=== PATIENT | female | born 1960 | race Caucasian/White ===

== ENCOUNTER 2016-12-10 18:43 | Emergency (ER) | payer OTHER ==
[~2016-12-10] VITALS: Ht 167.6 cm; Wt 88.4 kg
[~2016-12-10 18:43] MED LIST: ADVAIR IH; Advair 100/50 Diskus IH; CETIRIZINE HCL10 M2 PO; Ceftin PO; Claritin,Alavart PO; DICLOFENAC SODI50 MG PO; DUONEB 2.5-0.5 M3 ML IH; GABAPENTIN300 MG PO; INVOKANA300 MG PO; METFORMIN HCL1000 MG PO; METFORMIN PO; PERCOCET 5/31 TABLET PO; PROTONIX40 MG PO; PROVENTIL HFA6.7 GM IH; PROVENTIL,2.5 MG/3 M IH; RHINOCORT AQUA8.6 G1 NS; TAMIFLU75 MG PO; VENTOLIN HFA18 GM IH; [UNRECOGNIZED DRUG - OTHER]; predniSONE PO
[2016-12-10 20:10] LABS: HEMATOCRIT 41.4 % (36.0-46.0); MCH 30.7 PG (29.0-34.0); MCHC 34.3 G/DL (30.0-36.0); MCV 89.6 FL (83-99); MEAN PLAT.VOLUME 10.6 uM^3 (9.5-12.4); PLATELET COUNT 195 K/uL (156-360); RBC DIS.WIDTH-CV 12.4 % (11.8-14.6); RBC DIS.WIDTH-SD 39.9 % (39-53); RED BLOOD COUNT 4.62 M/uL (3.80-5.20); WHITE BLOOD COUNT 6.5 K/uL (4.1-10.2)
[2016-12-10 20:27] LABS: ADD MIUA? YES; BILIRUBIN NEGATIVE; BLOOD NEGATIVE; COLOR YELLOW ((YELLOW)); GLUCOSE (STRIP) >=500; KETONES NEGATIVE; LEUKOCYTES MODERATE; NITRITE NEGATIVE; PROTEIN (STRIP) 30; SPECIFIC GRAVITY 1.029 (1.000-1.030)
[2016-12-10 20:54] LABS: BACTERIA NONE SEEN /HPF; BUDDING YEAST 2+; EPITHELIAL CELLS RARE /HPF; MUCUS TRACE /LPF; WHITE BLOOD CELLS TNTC /HPF (0-5)
[2016-12-10 21:05] LABS: CHLORIDE 106 mEq/L (99-109); POTASSIUM 3.7 mEq/L (3.7-5.4); SODIUM 141 mEq/L (136-147)
[2016-12-10 21:07] LABS: GLUCOSE 224 mg/dL (70-99)
[2016-12-10 21:09] LABS: ANION GAP 9 MEQ/L (2-14); TOTAL BILIRUBIN 0.7 mg/dL (0.0-1.0)
[2016-12-10 21:11] LABS: ALKALINE PHOSPHATASE 84 IU/L (3-129); GFR ESTIMATE (CALCULATED) > 59 mL/min/
[2016-12-10 21:12] LABS: UREA NITROGEN (BUN) 11 mg/dL (9-23)
[2016-12-10 21:13] LABS: DIRECT BILIRUBIN 0.3 mg/dL (0.0-0.3)
[2016-12-10 21:14] LABS: LIPASE 12 U/L (1.0-51.0)
[2016-12-10] MEDS ORDERED: NAPROSYN500 MG PO (21:22)
[2016-12-10] MEDS ORDERED: CIPRO500 MG PO (21:22)
[2016-12-10 22:23] VITALS: BP 138/82
== END 2016-12-10 22:25 | disposition home or self-care (01) ==
LOC: EME 18:43
PROVIDERS: Emergency Medicine; Physician Assistant
DX: N30.00 Acute cystitis without hematuria (principal); J45.909 Unspecified asthma, uncomplicated; E11.9 Type 2 diabetes mellitus without complications; M79.7 Fibromyalgia; I10 Essential (primary) hypertension; K21.9 Gastro-esophageal reflux disease without esophagitis
CPT/HCPCS: 74176; 80048; 80076; 81003; 83690; 85027; 87086; 99281; 99284

== ENCOUNTER → 2017-08-09 | Outpatient (CLI) | payer OTHER ==
[~2017-08-09] VITALS: Ht 165.1 cm; Wt 87.1 kg
[~2017-08-09] MED LIST changes: +ACTOS45 MG PO; +CIPRO500 MG PO; +NAPROSYN500 MG PO; +TRULICITY1.5 MG/0.5 SC
[2017-08-09 14:57] LABS: POINT-OF-CARE METER ID UU14107333
[2017-08-09 16:25] LABS: POINT-OF-CARE METER ID UU13113819
== END | disposition home or self-care (01) ==
LOC: AMB 13:51
PROVIDERS: Internal Medicine
DX: Z12.11 Encounter for screening for malignant neoplasm of colon (principal); D12.3 Benign neoplasm of transverse colon; K29.70 Gastritis, unspecified, without bleeding; K57.90 Diverticulosis of intestine, part unspecified, without perforation or abscess without bleeding; K63.5 Polyp of colon; K64.8 Other hemorrhoids; Z86.010 Personal history of colon polyps; Z80.0 Family history of malignant neoplasm of digestive organs; E11.65 Type 2 diabetes mellitus with hyperglycemia; F41.8 Other specified anxiety disorders; K21.9 Gastro-esophageal reflux disease without esophagitis; M79.7 Fibromyalgia; Z80.3 Family history of malignant neoplasm of breast; Z80.42 Family history of malignant neoplasm of prostate; Z88.0 Allergy status to penicillin
CPT/HCPCS: 82948; 88305; 88342 TC; 93005; J2704; J3010